=== PATIENT | female | born 1945 | race Caucasian/White ===

== ENCOUNTER 2020-12-27 09:16 | Emergency (ER) | payer MEDICARE ==
[2020-12-27] MEDS ORDERED: Iopamidol-370 76% 500 ML 1 ML ONE (09:51)
[2020-12-27 09:54] LABS: #Basophils 0.1 thou/uL (0.0-0.2); #Eosinphils 0.2 thou/uL (0.0-0.7); #Lymphocytes 1.5 thou/uL (1.20-3.40); #Monocytes 0.7 thou/uL (0.11-0.59); #Neutrophils 6.1 thou/uL (1.40-6.50); %Basophils 1.1 % (0.0-1.0); %Eosinophils 2.9 % (0.0-10.0); %Lymphocytes 16.9 % (21.0-51.0); %Monocytes 8.1 % (0.0-10.0); %Neutrophils 70.9 % (42.0-75.0); Hemoglobin 13.6 g/dL (12.0-16.0); Mean Corpuscular HGB CONC 32.8 g/dL (32.0-36.0); Mean Corpuscular Hemoglobin 30.2 pg (27.0-31.0); Mean Corpuscular Volume 91.9 fL (78.0-98.0); Mean Platelet Volume 6.6 fL (7.4-10.4); Platelet Count 333 thou/uL (130-400); RBC Distribution Width 12.5 % (11.5-14.5); Red Blood Cell (RBC) Count 4.51 mill/uL (4.20-5.40); White Blood Cell (WBC) Count 8.5 thou/uL (4.8-10.8)
[2020-12-27 10:26] LABS: ALT (SGPT) 13 U/L (8-55); AST (SGOT) 14 U/L (5-34); Albumin 3.9 g/dL (3.4-4.8); Alkaline Phosphatase 72 U/L (40-110); BUN (Urea Nitrogen) 9 mg/dL (9.8-20.1); Bilirubin, Total 0.5 mg/dL (0.2-1.2); Calc. Creatinine Clearance 0 mL/min (70-130); Carbon Dioxide 25 mmol/L (23-31); Chloride 106 mmol/L (98-107); Globulin 2.7 g/dL (2.4-3.5); Glucose 119 mg/dL (83-110); Potassium 3.8 mmol/L (3.5-5.1); Protein, Total 6.6 g/dL (5.8-8.1); Sodium 137 mmol/L (136-145)
[2020-12-27 10:47] LABS: Bilirubin Negative (Negative); Blood, Urine 1+ (Negative); Clarity Turbid (Clear); Glucose, Urine (Dipstick) Normal (Negative); Ketone, Urine Negative (Negative); Leukocyte 500 Leu/uL (Negative); Nitrite Negative (Negative); Protein, Urine (Dipstick) 30 mg/dL (Neg-Trace); Specific Gravity, Urine 1.031 (1.002-1.036); Urobilinogen Normal mg/dL (Less than 2); pH, Urine 5.5 (5.0-9.0)
[2020-12-27 10:53] LABS: Bacteria/HPF 2+ HPF (None Seen)
[2020-12-27 10:54] LABS: Calcium Oxalate Crystals 2+ HPF (None Seen)
[2020-12-27 10:55] LABS: RBC/HPF 0-3 HPF (0-3)
[2020-12-27 11:03] LABS: Anion Gap 10 mmol/L (10-20)
[2020-12-31] MEDS ORDERED: Ondansetron ODT 4 MG TAB PO PRN (18:48)
[2020-12-31] MEDS ORDERED: Acetaminophen 325 MG TAB PO PRN (18:48)
[2020-12-31] MEDS ORDERED: Sodium Chloride 0.9% 1,000 ML IV SCH (19:00)
[2020-12-31 19:51] LABS: Lactic Acid 2.3 mmol/L (0.5-2.2)
[2020-12-31] MEDS ORDERED: buPROPion 75 MG TAB PO SCH (21:00)
[2020-12-31] MEDS ORDERED: Gabapentin 100 MG CAP PO SCH (21:00)
[2020-12-31] MEDS ORDERED: metroNIDAZOLE 500 MG in Premix Bag 1 BAG IVPB SCH (23:59)
== END 2020-12-27 11:32 | disposition home or self-care (01) ==
LOC: ERS 09:16
DX: K57.32 Diverticulitis of large intestine without perforation or abscess without bleeding (principal); J45.909 Unspecified asthma, uncomplicated
CPT/HCPCS: 36415; 74177; 80053; 81003; 81015; 83605; 84484; 85025; 93005; Q9967

== ENCOUNTER 2020-12-31 16:36 | Inpatient (IN) | payer MEDICARE ==
[2020-12-31] MEDS ORDERED: Cefepime 2 GM VIAL ONE (17:53)
[2020-12-31] MEDS ORDERED: Morphine 4 MG/ML VIAL ONE (18:02)
[2020-12-31] MEDS ORDERED: Ondansetron PF 4 MG/2 ML Vial ONE (18:02)
[2020-12-31 18:25] LABS: #Eosinphils 0.2 thou/uL (0.0-0.7); #Lymphocytes 1.6 thou/uL (1.20-3.40); #Monocytes 0.8 thou/uL (0.11-0.59); #Neutrophils 5.7 thou/uL (1.40-6.50); %Basophils 0.4 % (0.0-1.0); %Eosinophils 2.9 % (0.0-10.0); %Lymphocytes 18.5 % (21.0-51.0); %Monocytes 9.5 % (0.0-10.0); %Neutrophils 68.7 % (42.0-75.0); Hemoglobin 14.3 g/dL (12.0-16.0); Mean Corpuscular HGB CONC 33.9 g/dL (32.0-36.0); Mean Corpuscular Hemoglobin 30.8 pg (27.0-31.0); Mean Corpuscular Volume 90.9 fL (78.0-98.0); Mean Platelet Volume 6.8 fL (7.4-10.4); Platelet Count 361 thou/uL (130-400); RBC Distribution Width 12.3 % (11.5-14.5); Red Blood Cell (RBC) Count 4.65 mill/uL (4.20-5.40); White Blood Cell (WBC) Count 8.3 thou/uL (4.8-10.8)
[2020-12-31 18:49] LABS: ALT (SGPT) 15 U/L (8-55); AST (SGOT) 24 U/L (5-34); Albumin 3.9 g/dL (3.4-4.8); Alkaline Phosphatase 69 U/L (40-110); Anion Gap 9 mmol/L (10-20); BUN (Urea Nitrogen) 12 mg/dL (9.8-20.1); Bilirubin, Total 0.3 mg/dL (0.2-1.2); Calc. Creatinine Clearance 0 mL/min (70-130); Calcium 9.5 mg/dL (7.8-10.44); Carbon Dioxide 25 mmol/L (23-31); Chloride 108 mmol/L (98-107); Glucose 89 mg/dL (83-110); Potassium 4.4 mmol/L (3.5-5.1); Protein, Total 6.9 g/dL (5.8-8.1); Sodium 138 mmol/L (136-145)
[2020-12-31 19:17] LABS: INR-International Normal Ratio 3.1; PTT 49.4 sec (22.9-36.1); Prothrombin Time 32.9 sec (12.0-14.7)
[2020-12-31] MEDS ORDERED: metroNIDAZOLE 500 MG/100 ML BAG ONE (19:27)
[2020-12-31] MEDS ORDERED: Ondansetron ODT 4 MG TAB PO PRN (19:35)
[2020-12-31] MEDS ORDERED: Acetaminophen 650 MG Suppository PR PRN (19:35)
[2020-12-31] MEDS ORDERED: Ondansetron PF 4 MG/2 ML Vial IVP PRN (19:35)
[2020-12-31] MEDS ORDERED: CEFEPIME HCL IN DEXTROSE 5 % 1 GM/50 ML BAG IVPB SCH (19:45)
[2020-12-31] MEDS ORDERED: Morphine 4 MG/ML VIAL SLOW IVP PRN (21:55)
[2020-12-31] MEDS: Sodium Chloride 0.9% 1,000 ML IV SCH (22:18)
[2021-01-01 00:55] VITALS: BMI 33.4
[2021-01-01] MEDS: Acetaminophen 325 MG TAB PO PRN ×2 (01:21→13:04)
[2021-01-01] MEDS ORDERED: hydrOXYzine 10 MG TAB PO PRN (04:05)
[2021-01-01] MEDS: metroNIDAZOLE 500 MG in Premix Bag 1 BAG IVPB SCH ×3 (04:38→21:01)
[2021-01-01] MEDS: Sodium Chloride 0.9% 1,000 ML IV SCH ×2 (05:19→12:32)
[2021-01-01] MEDS: Cefepime 2 GM in Sodium Chloride 0.9% 100 ML IVPB SCH ×2 (06:15→16:35)
[2021-01-01 07:43] LABS: #Eosinphils 0.3 thou/uL (0.0-0.7); #Lymphocytes 1.7 thou/uL (1.20-3.40); #Monocytes 0.6 thou/uL (0.11-0.59); #Neutrophils 3.5 thou/uL (1.40-6.50); %Basophils 0.7 % (0.0-1.0); %Eosinophils 5.5 % (0.0-10.0); %Lymphocytes 26.9 % (21.0-51.0); %Monocytes 9.6 % (0.0-10.0); %Neutrophils 57.3 % (42.0-75.0); Hemoglobin 12.7 g/dL (12.0-16.0); Mean Corpuscular HGB CONC 34.4 g/dL (32.0-36.0); Mean Corpuscular Hemoglobin 31.4 pg (27.0-31.0); Mean Corpuscular Volume 91.1 fL (78.0-98.0); Mean Platelet Volume 6.6 fL (7.4-10.4); Platelet Count 305 thou/uL (130-400); RBC Distribution Width 12.2 % (11.5-14.5); Red Blood Cell (RBC) Count 4.03 mill/uL (4.20-5.40); White Blood Cell (WBC) Count 6.2 thou/uL (4.8-10.8)
[2021-01-01 07:56] LABS: INR-International Normal Ratio 3.3; Prothrombin Time 34.4 sec (12.0-14.7)
[2021-01-01 08:03] LABS: Anion Gap 10 mmol/L (10-20); BUN (Urea Nitrogen) 9 mg/dL (9.8-20.1); Calc. Creatinine Clearance 105 mL/min (70-130); Calcium 8.5 mg/dL (7.8-10.44); Carbon Dioxide 22 mmol/L (23-31); Chloride 111 mmol/L (98-107); Glucose 91 mg/dL (83-110); Potassium 4.1 mmol/L (3.5-5.1); Sodium 139 mmol/L (136-145)
[2021-01-01] MEDS: Morphine 2 MG/ML VIAL SLOW IVP PRN ×4 (08:31→21:10)
[2021-01-01] MEDS ORDERED: FLU VACC QS2021-22(65YR UP)/PF 240 MCG/0.7 ML SYRINGE IM ONE (09:00)
[2021-01-01 18:42] LABS: SARS-CoV-2 PCR by NAA Not Detected (NotDetected)
[2021-01-02] MEDS: metroNIDAZOLE 500 MG in Premix Bag 1 BAG IVPB SCH ×3 (05:21→20:23)
[2021-01-02] MEDS: Sodium Chloride 0.9% 1,000 ML IV SCH ×2 (05:21→16:03)
[2021-01-02] MEDS: Cefepime 2 GM in Sodium Chloride 0.9% 100 ML IVPB SCH ×2 (05:21→17:36)
[2021-01-02] MEDS: Morphine 2 MG/ML VIAL SLOW IVP PRN ×3 (05:21→20:24)
[2021-01-02] MEDS: Azithromycin 250 MG TAB PO SCH (17:36)
[2021-01-03] MEDS: Sodium Chloride 0.9% 1,000 ML IV SCH ×2 (01:00→11:42)
[2021-01-03] MEDS: metroNIDAZOLE 500 MG in Premix Bag 1 BAG IVPB SCH ×2 (03:53→11:42)
[2021-01-03] MEDS: Cefepime 2 GM in Sodium Chloride 0.9% 100 ML IVPB SCH (05:31)
[2021-01-03] MEDS: Morphine 2 MG/ML VIAL SLOW IVP PRN (06:21)
[2021-01-03 16:00] VITALS: BP 163/85; TEMP 98.1
[2021-01-03] MEDS: Azithromycin 250 MG TAB PO SCH (16:38)
[2021-01-03] MEDS ORDERED: buPROPion HCl 100 MG TAB PO SCH (21:00)
[2021-01-03] MEDS ORDERED: Gabapentin 400 MG CAP PO SCH (21:00)
[2021-01-03] MEDS ORDERED: Donepezil HCl 10 MG TAB PO SCH (21:00)
[2021-01-04] MEDS ORDERED: Levothyroxine Sodium 100 MCG TAB PO SCH (06:00)
[2021-01-04] MEDS ORDERED: DULoxetine 30 MG CAP PO SCH (09:00)
[2021-01-04] MEDS ORDERED: Cholecalciferol 1,000 UNITS (25 MCG) TAB PO SCH (09:00)
[2021-01-04] MEDS ORDERED: Lactinex Tablet PO SCH (09:00)
== END 2021-01-03 17:36 | disposition left against medical advice (07) | DRG 372 ==
LOC: ERS 16:36 → T4-A 18:17
PROVIDERS: ADMIT Internal Medicine; ATTEND Internal Medicine
DX: A04.5 Campylobacter enteritis (principal); N39.0 Urinary tract infection, site not specified; K92.1 Melena; K57.32 Diverticulitis of large intestine without perforation or abscess without bleeding; K76.9 Liver disease, unspecified; E03.9 Hypothyroidism, unspecified; M79.7 Fibromyalgia; M19.90 Unspecified osteoarthritis, unspecified site; Z20.822 Contact with and (suspected) exposure to COVID-19; J45.909 Unspecified asthma, uncomplicated; Z88.0 Allergy status to penicillin
CPT/HCPCS: 36415; 36416; 74177; 80048; 80053; 83605; 84443; 85025; 85610; 85730; 87045; 87046; 87324; 87427; 87449; J0692; J2270; J2405; J3490; J7050; U0003; U0005